=== PATIENT | male | born 2000 | race Two or more races ===

== ENCOUNTER 2021-10-19 10:54 | Emergency (ER) | payer OTHER ==
[~2021-10-19] VITALS: Ht 190.5 cm; Wt 131.5 kg
[2021-10-19 11:00] VITALS: BP 137/87
== END 2021-10-19 15:24 | disposition left against medical advice (07) ==
LOC: ER 10:54
DX: T22.011A Burn of unspecified degree of right forearm, initial encounter (principal); Z53.21 Procedure and treatment not carried out due to patient leaving prior to being seen by health care provider; X19.XXXA Contact with other heat and hot substances, initial encounter; Y93.89 Activity, other specified; Y92.89 Other specified places as the place of occurrence of the external cause; Y99.8 Other external cause status